=== PATIENT | female | born 1955 | race Caucasian/White ===

== ENCOUNTER 2017-01-17 13:00 | Inpatient (IN) | payer OTHER ==
[~2017-01-17] VITALS: Ht 162.6 cm; Wt 94.0 kg
--- NOTE | ~2017-01-17 | HP ---
PATIENT'S NAME: CARLOS [facility] AGE: 61 Y [address] ROOM: [place] [address] LOCATION: [facility] ADMIT DATE: 01/30/2017 History & Physical DISCHARGE DATE: FAMILY PHYSICIAN: Kim Aguilar PA-C ATTENDING PHYSICIAN: KAMALJIT PEREA DATE OF SERVICE: CHIEF COMPLAINT: End-stage DJD, left knee. HISTORY OF PRESENT ILLNESS: The patient is a 61-year-old, white female, who was admitted to the care of Dr. Kamaljit Perea today at [facility] and taken to the operating room for diagnosis of end-stage DJD, left knee. When I see her, she has undergone an uncomplicated left total knee arthroplasty per Dr. Perea. She is resting quietly in bed. She does not complain of chest pain, shortness of breath, nausea, or vomiting. She says her pain control is adequate. I told her I would follow her postop for her medical illnesses of hypertension and for pain management. PAST MEDICAL HISTORY: Previous left ankle tendon surgery, total abdominal hysterectomy with right single oophorectomy status post D and C, fine tremor status post left knee arthroscopy in the past, status post right total knee in 2013, status post right rotator cuff repair in 2014. SOCIAL HISTORY: The patient is . Nonsmoker. She does not drink alcohol. FAMILY HISTORY: Negative for problems with bleeding disorder or general anesthesia. ALLERGIES TO MEDICATION: To bee sting, honey, and bee wax. CURRENT MEDICATIONS: Cozaar 50 mg a day, Claritin 10, hydrochlorothiazide 12.5 daily. REVIEW OF SYSTEMS: HEENT: Negative. NECK: Negative. LUNGS: Negative. HEART: Negative other than hypertension. GI: Negative. [facility] 61 Y [address] ROOM: [place] [address] LOCATION: [facility] ADMIT DATE: 01/30/2017 History & Physical DISCHARGE DATE: FAMILY PHYSICIAN: Kim Aguilar PA-C ATTENDING PHYSICIAN: KAMALJIT PEREA : Negative. EXTREMITIES: Negative. NEUROLOGIC: Negative. IMMUNIZATIONS: Status unknown. PHYSICAL EXAM: GENERAL: Alert female, postop status, oriented to person, place, and time. HEENT: Shows pupils react to light. TMs not visualized. Posterior pharynx clear. NECK: Unremarkable. Thyroid enlarged. LUNGS: Clear without wheeze or rub. HEART: Shows no murmur, gallop, or rub. ABDOMEN: Soft without point tenderness. PELVIC, RECTAL, BREAST: Exam not done. EXTREMITIES: Dressing over the left knee is noted. NEUROLOGIC: Grossly intact. Cranial nerves intact. ASSESSMENT: 1. End-stage degenerative joint disease, left knee. 2. Status post left total knee arthroplasty today 01/30/[address] Perea. 3. Hypertension, essential. 4. Allergies to bee stings, honey, and bee wax. PLAN: Follow daily and further treatments as indicated. MD CAPRI JOHNSON/jackl /[id number] D: [id number] T: [id number] HISTORY & PHYSICAL
--- NOTE | ~2017-01-17 | DS ---
PATIENT'S NAME: JESSE GONZALEZ [facility] AGE: 61 Y [address] ROOM: [facility] [place], [place] [address] LOCATION: [facility] ADMIT DATE: 01/30/2017 Discharge Summary DISCHARGE DATE: 02/01/2017 FAMILY PHYSICIAN: Kim Aguilar PA-C ATTENDING PHYSICIAN: Swathi Alvarez FINAL DIAGNOSES: Degenerative joint disease of left knee. The patient underwent left total knee arthroplasty without complications, hospitalist team followed her for management of medical comorbidities. She was discharged home. Continue outpatient physical therapy. Continue DVT prophylaxis. She met short-term goal safely. We will follow up her in 2 weeks. SWATHI ALVAREZ DO PH/modl /[id number] d: 02/15/17 1926 t: 02/22/17 1121, DISCHARGE SUMMARY
--- NOTE | ~2017-01-17 | OR ---
PATIENT'S NAME: CARLOS [facility] AGE: 61 Y [address] ROOM: [place] [address] LOCATION: [facility] ADMIT DATE: 01/30/2017 OR/Procedure Report DISCHARGE DATE: FAMILY PHYSICIAN: Kim Aguilar PA-C ATTENDING PHYSICIAN: KAMALJIT PEREA SURGEON: Kamaljit Perea DO HOUSEKEEPING/LAUNDRY SUPERVISOR: DATE OF PROCEDURE: 01/30/2017 PREOPERATIVE DIAGNOSIS: Left knee degenerative arthritis. POSTOPERATIVE DIAGNOSIS: Left knee degenerative arthritis. OPERATION PERFORMED: Left total knee arthroplasty, cemented tibia and femur using medial parapatellar/subvastus approach. OPERATIONAL RISK CONSULTANT: No PA or special education assistant. TOURNIQUET TIME: 29 minutes. ANESTHESIA: Spinal with adductor canal block plus periarticular cocktail. HARDWARE: Klever Persona Knee System and the patient's specific implants. Femur size 6, tibia size E, polyethylene size 10, medial congruent. COMPLICATIONS: None. ANTIBIOTICS: Given. TIMEOUT: Performed. 1 gram IV tranexamic acid given on incision, second gram topically at closure. SPECIMENS: None. ESTIMATED BLOOD LOSS: Less than 50 mL. HISTORY: This is a pleasant 61-year-old, has persistent knee pain, has failed conservative therapy including physical therapy, braces, and injections. The patient continues to suffer pain and fails activities of daily living. It is limiting quality of life and ADLs. We had a discussion regarding further treatment options as the patient has failed all conservative care. The patient wished to proceed with total knee arthroplasty. The risks, benefits, goals and potential complications were discussed. The patient had been through the total joint course and reviewed our online resources [facility] PATIENT'S NAME: CARLOS [facility] AGE: 61 Y [address] ROOM: [place] [address] LOCATION: [facility] ADMIT DATE: 01/30/2017 OR/Procedure Report DISCHARGE DATE: FAMILY PHYSICIAN: Kim Aguilar PA-C ATTENDING PHYSICIAN: KAMALJIT PEREA and then given written handout with the explanations, risks, benefits, and potential treatment complications. Consent signed on the chart. The patient understands the risk of implant recalls; potential for infection up to 2% including deep infection, this could result in multiple surgeries of explant antibiotic spacers and third surgery. The patient understands the risk of fractures; neurovascular injury; damage to arteries, nerves, muscles, tendons; loss of motion; pain; potential to develop a DVT, which could lead to pulmonary embolus and even . The patient has been well informed of the treatment options, risks, benefits, and chance of complications. The patient elects to proceed. DESCRIPTION OF PROCEDURE: The patient was brought back to the operating room theater under anesthesia. The patient was prepped and draped in the usual sterile fashion with the leg exsanguinated and tourniquet inflated. A midline incision starting from the medial aspect of the tibial tubercle approximately 3 fingerbreadths above the superior pole of the patella. Medial parapatellar arthrotomy with subvastus approach exposed the deep capsule. The deep medial capsule was elevated off the medial side of the tibia based on whether they are varus or valgus. Fat pad removed with careful attention not to injure the patellar tendon and the anterior horns of the medial and lateral meniscus were removed. ACL was sacrificed and a retractor was placed protecting the medial and lateral collateral ligaments. The distal cutting block put in position. Appropriate resection taken off the distal femur. After confirmed positioning, slope, proximal tibia resected. Careful attention protecting the collateral ligaments, patellar tendon with bicondylar smooth and dual PCL retractor placed to protect the posterior structures. We then placed a spacer block to confirm adequate bony resections with extension gap. Medial and lateral compartments were cleaned out of any meniscus and soft tissue protecting the collaterals, popliteus, and posterior structures. The anterior and posterior chamfer cuts were made confirming no notching anteriorly. Bony osteophytes removed. A trial femur was placed and using a poly, I floated the tibia confirming intact collateral ligaments and good balancing. If any further releases were needed, those were performed. I confirmed there were no posterior osteophytes of the distal femur, floating technique, I marked the position of the tibia. Final preparation of the femur with lug holes drilled. I then removed the trial femur, placed the tibia, and confirmed axial alignment with PSI and the floating technique. Once satisfied, the trial tibial plate was locked into place confirming with drop debby appropriate alignment and slope. The final tibia was drilled and cruciate punch performed. With the trials in place, went through range of motion, confirming excellent stability with varus/valgus stress and good stability at 0, 30, and 90 degrees of motion. I confirmed the patella was well tracking after osteophytes removed. A patelloplasty was performed with no resurfacing. All trials were then removed. The bone was pulsatiled to clean and dry surface. Exparel cocktail using multiple stabs with careful aspiration not to inject PATIENT'S NAME: JESSE GON[facility]ALEZ [facility] AGE: 61 Y [address] ROOM: [address] [address] LOCATION: [facility] ADMIT DATE: 01/30/2017 OR/Procedure Report DISCHARGE DATE: FAMILY PHYSICIAN: Kim Aguilar PA-C ATTENDING PHYSICIAN: KAMALJIT PEREA intravascularly, staying away from the lateral compartment as to not cause foot drop. The tibia was placed followed by femur, held in full extension with trial poly. Excess cement removed. Reconfirmed stability with trial poly. If PCL well functioning, I used a high flex medial congruent; if PCL at risk for deficiency, a deep-dish polyethylene used. Once the trial poly was removed, confirmed all cement was hardened and excess cement removed. Range of motion confirmed again prior to final poly being locked into place. Aquamantys was used to establish hemostasis with tourniquet deployed. Final poly locked into place. Hemostasis achieved. Wound closure involved #2 Vicryl in a [id number] pattern along the capsulotomy followed by #2 Quill, Monocryl in a simple buried pattern followed by V-Loc Dermabond. Once the Dermabond cured, the staff placed a Mepilex dressing followed by pulling the thigh-high BETTY hose over the wound and insulating the skin to prevent soft tissue cold injury from the [employer]. Please note that SCDs and BETTY hose started preop in the recovery room, continued on the nonoperative site to prevent DVT. Sponge and needle counts were reported correct x3. The patient will be followed by hospitalist, allowed to weight bear as tolerated, with encouraged physical therapy. On the day of surgery, continue prophylactic antibiotics for the first 24 hours. Continue DVT prophylaxis with SCDs, foot pumps, and BETTY hose. Unless contraindicated, they will start full-strength aspirin within 23 hours and continue for a month. CPT 22 will be added to this case secondary to the patient's BMI of 38. This is secondary to increased duration due to excess adipose tissue and required additional personnel and assistance, equipment, and time over a standard BMI patient. KAMALJIT PEREA DO PH/meño /[id number] d: 01/30/17 1039 t: 02/04/17 1305, OPERATIVE SUMMARY
[2017-01-17] MEDS ORDERED: COZAAR50 MG PO (13:59)
[2017-01-17] MEDS ORDERED: HYDROCHLOROTH12.5 M1 PO (13:59)
[2017-01-17] MEDS ORDERED: ULTRAM50 MG PO (14:00)
[2017-01-17] MEDS ORDERED: CLARITIN10 MG PO (14:00)
[2017-01-17] MEDS ORDERED: IBUPROFEN800 MG PO (14:00)
[2017-01-17] MEDS ORDERED: TYLENOL EXTRA500 MG PO (14:01)
--- NOTE | 2017-01-30 15:39 | NUR ---
Pt here from PACU at 1045. Had spinal and adductor canal block. Mostly worn off now. CSM WNL, Pt has voided x2. Pt had roxicodone at 1330 and pain a 1 earlier. Will repeat prior to end of shift. Ice to knee. Dressing prakash wrap dry and intact. Pt is on room air. Pt ate lunch and juanjose well. IS use at 1250. she has sleep apnea but no Cpap. Pt has history of hypertension. Plans to go home with family upon discharge. She was up to [facility] and is now in the recliner at about 1500.
--- NOTE | 2017-01-30 16:56 | NUR ---
Pt had roxicodone at 1640 for pain rated at 3. Continues up in chair
--- NOTE | 2017-01-31 05:22 | NUR ---
Significant Event: Alert and oriented x3. Vital signs stable. Dressing to L) hip is CDI, ecchymosis present. CSM WNL. Ambulates to bathroom with SBA, gait belt and walker. IV SL'd. Roxicodone given last at 0330. Minimal pain. Follow up:
--- NOTE | 2017-01-31 09:40 | NUR ---
Introduced self/role to patient. She lives in [place]. She has all her DME from her previous knee done recently. Will have help as needed at home. No concerns or needs at this time. Planning to go home tomorrow. Wrote my name down on her board. Will continue to follow.
--- NOTE | 2017-01-31 17:07 | NUR ---
Pt alert and oriented. She has been up in recliner all shift. Amb to BR with standby assist. UP huffman and to joint class. Steady gait. CSM WNL. Mepilex dressing dry and intact. Ice to knee all shift. Pt has had roxicodone po x3, last at 1620. Uses IS at 1250. Ecchymosis to knee area and some edema. Pt is high risk GIL and no Cpap. Plan to discharge tomorrow to home. Has own equipment from last surgery.
--- NOTE | 2017-02-01 04:23 | NUR ---
POD#2 LEFT TKA, INCISION CDI W/MEPILEX INTACT, GOOD CSMS, UP WITH SBA/FWW/GAIT BELT AND DOES VERY WELL. GOOD PO INTAKE/OUTPUT AND BM THIS SHIFT. LEFT HAND PIV SALINE LOCKED. PAIN CONTROLLED WITH ROXYCODONE LD@0200 AND SCHEDULED TYLENOL AND WILL REASSESS BEFORE SHIFT CHANGE. DC PLAN FOR HOME POSSIBLY TODAY IF DISCHARGED.
--- NOTE | 2017-02-01 07:58 | NUR ---
[id number] Supervised [facility] Player Development Manager.
[2017-02-01] MEDS ORDERED: ECOTRIN325 MG PO (08:36)
[2017-02-01] MEDS ORDERED: CELEBREX200 MG PO (08:36)
[2017-02-01] MEDS ORDERED: COLACE100 MG PO (08:37)
[2017-02-01] MEDS ORDERED: LYRICA 75MG CAP75 MG PO (08:43)
[2017-02-01] MEDS ORDERED: ROXICODONE 5MG (5 MG PO (08:44)
[2017-02-01] MEDS ORDERED: NORCO 5-325 TA1 EACH PO (08:45)
--- NOTE | 2017-02-01 15:56 | NUR ---
Discharge instructions reviewed with patient. Reviewed s/s infection, all medications, when to call to dr, care of dressing, f/u appt, s/s dvt, etc. Refer to discharge instructions for details. All belongings sent with patient. Awaiting family to pick her up.
== END 2017-02-01 16:30 | disposition disaster alternative care site (69) | DRG 470 ==
LOC: G3N 01-30 05:49
PROVIDERS: ADMIT Orthopaedic Surgery
PROC: 0SRD0J9 Replacement of Left Knee Joint with Synthetic Substitute, Cemented, Open Approach (ICD-10-PCS; principal; 2017-01-30)
DX: M17.12 Unilateral primary osteoarthritis, left knee (principal); I10 Essential (primary) hypertension; Z91.030 Bee allergy status
CPT/HCPCS: C1713; C1776; J0171; J0690; J0735; J1100; J1885; J2001; J2250; J2405; J2795; J3010; J7040; J7120

== ENCOUNTER → 2017-01-18 | Outpatient (CLI) | payer OTHER ==
[~2017-01-18] MED LIST: CELEBREX200 MG PO; CLARITIN10 MG PO; COLACE100 MG PO; COZAAR50 MG PO; ECOTRIN325 MG PO; HYDROCHLOROTH12.5 M1 PO; IBUPROFEN800 MG PO; LYRICA 75MG CAP75 MG PO; NORCO 5-325 TA1 EACH PO; ROXICODONE 5MG (5 MG PO; TYLENOL EXTRA500 MG PO; ULTRAM50 MG PO
== END | disposition disaster alternative care site (69) ==
LOC: GNJRC 10:09
DX: Z01.818 Encounter for other preprocedural examination (principal)